=== PATIENT | male | born 1980 | race African-American/Black ===

== ENCOUNTER 2018-01-16 19:08 | Emergency (ER) | payer OTHER ==
[2018-01-16] MEDS ORDERED: IBUPROFEN 800 MG TABLET PO ONE (21:36)
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
[2018-01-16 21:49] VITALS: BP 145/87
== END 2018-01-16 21:47 | disposition home or self-care (01) ==
LOC: ER 19:08
DX: S16.1XXA Strain of muscle, fascia and tendon at neck level, initial encounter (principal); S39.012A Strain of muscle, fascia and tendon of lower back, initial encounter; V43.52XA Car driver injured in collision with other type car in traffic accident, initial encounter; M54.89 Other dorsalgia; I10 Essential (primary) hypertension
CPT/HCPCS: 99283